=== PATIENT | female | born 1975 | race Caucasian/White ===

== ENCOUNTER 2017-03-31 19:23 | Inpatient (IN) | payer MEDICAID ==
--- NOTE | 2017-03-31 21:08 | EDPHY ---
H & P Stated Complaint: POS PANCREATIC PSEUDO CYST Time Seen by Provider: 03/31/17 20:54 HPI/ROS: CHIEF COMPLAINT: Pancreatic pseudocyst HISTORY OF PRESENT ILLNESS: The patient is a 41-year-old female with a history of chronic alcoholism and pancreatitis who comes to the emergency department directly from [facility] where she had been being treated for pancreatitis and pancreatic pseudocyst. She states that she was initially being treated with meropenem through a PICC line but it caused neutropenia so she was switched to ceftriaxone, Flagyl and vancomycin today. Her pseudocyst had grown in size and a 2nd cyst developed in the last 5 days during her hospitalization at [facility]. The gastrologist there did not want to attempt to drain it because of a history of esophageal varices. The interventional radiologist did not think that it was amenable to IR procedure. Her who works here in this hospital and Dr. Real became involved and felt that he may be able to drain the cyst therefore the patient was discharged from [facility] and has now come to the ER for admission. She states that she is confused about why she was not transferred. She does not have a fever. No nausea vomiting. She states that she is also scheduled to have paracentesis this evening but left before happened. REVIEW OF SYSTEMS: Constitutional: denies: chills, fever, recent illness, recent injury EENTM: denies: blurred vision, double vision, nose congestion Respiratory: denies: cough, shortness of breath Cardiac: denies: chest pain, irregular heart rate, lightheadedness, palpitations Gastrointestinal/Abdominal: See HPI Genitourinary: denies: dysuria, frequency, hematuria, pain Musculoskeletal: denies: joint pain, muscle pain Skin: denies: lesions, rash, jaundice, bruising Neurological: denies: headache, numbness, paresthesia, tingling, dizziness, weakness Hematologic/Lymphatic: denies: blood clots, easy bleeding, easy bruising Immunologic/allergic: denies: HIV/AIDS, transplant EXAM: GENERAL: Well-appearing, well-nourished and in no acute distress. HEAD: Atraumatic, normocephalic. EYES: Pupils equal round and reactive to light, extraocular movements intact, sclera anicteric, conjunctiva are normal. ENT: TMs normal, nares patent, oropharynx clear without exudates. Moist mucous membranes. NECK: Normal range of motion, supple without lymphadenopathy or JVD. LUNGS: Breath sounds clear to auscultation bilaterally and equal. No wheezes rales or rhonchi. HEART: Regular rate and rhythm without murmurs, rubs or gallops. ABDOMEN: Mildly distended, ascites, epigastric tenderness. BACK: No CVA tenderness, no spinal tenderness, step-offs or deformities EXTREMITIES: Normal range of motion, no pitting or edema. No clubbing or cyanosis. NEUROLOGICAL: Cranial nerves II through XII grossly intact. Normal speech, normal gait. 5/5 strength, normal movement in all extremities, normal sensation PSYCH: Normal mood, normal affect. SKIN: Warm, dry, normal turgor, no visible rashes or lesions. Source: Patient, Old records Exam Limitations: No limitations - Personal History LMP (Females 10-55): 8-14 Days Ago Current Tetanus Diphtheria and Acellular Pertussis (TDAP): Yes Tetanus Vaccine Date: 03/2016 - Medical/Surgical History Hx Asthma: No Hx Chronic Respiratory Disease: No Hx Diabetes: No Hx Cardiac Disease: No Hx Renal Disease: No Hx Cirrhosis: Yes Hx Alcoholism: Yes Hx HIV/AIDS: No Hx Splenectomy or Spleen Trauma: No Other PMH: Alcoholism, PARACENTESIS, LIVER DX, VARISCES, PICC LINE R ARM, - Social History Smoking Status: Never smoked Alcohol Use: Heavy Drug Use: None Constitutional: Initial Vital Signs Temperature (C) 36.5 C 03/31/17 19:29 Heart Rate 94 03/31/17 19:29 Respiratory Rate 18 03/31/17 19:29 Blood Pressure 140/93 H 03/31/17 19:29 O2 Sat (%) 98 03/31/17 19:29 O2 Delivery Mode Room Air Allergies/Adverse Reactions: No Known Allergies Allergy (Unverified 03/31/17 19:27) Home Medications: Medication Instructions Recorded Pantoprazole Sodium [Protonix 40mg 40 mg PO BID 03/31/17 (*)] amLODIPine BESYLATE [Norvasc 10 mg 10 mg PO DAILY 03/31/17 (*)] Medical Decision Making ED Course/Re-evaluation: 9:15 p.m. I discussed the case with Dr. Willam Recinos from Gastroenterology. He is not familiar with the plan but will consult. He recommends admission to the hospital service. 9:30 p.m. I discussed the case with Dr. Zachary Reynoso. He was not aware of the patient either. Dr. Recinos call back and states that he spoke with Dr. Real who was not aware that the patient was coming to [place] but had been told previously that the patient had a non drainable pancreatic pseudocyst. The patient is slightly frustrated with the delays. We are obtaining blood work right now and will order antibiotics. Differential Diagnosis: Partial list of the Differential diagnosis considered include but were not limited to; pancreatitis, pancreatic pseudocyst, ascites and although unlikely based on the history and physical exam, I also considered spontaneous bacterial peritonitis, obstruction, ischemia, peptic ulcer disease. - Data Points Laboratory Results: Laboratory Results 03/31/17 22:05 03/31/17 22:05 Medications Given: Diphenhydramine HCl (Benadryl Injection) 12.5 - 25 mg IVP Q4HRS PRN PRN Reason: Itching Stop: 09/27/17 23:30 Last Admin: 04/01/17 01:49 Dose: 25 mg Hydromorphone HCl (Dilaudid) 0.5 - 1 mg IVP Q3HRS PRN PRN Reason: Pain, Severe Unable to Take PO Stop: 04/10/17 23:26 Last Admin: 04/01/17 20:26 Dose: 1 mg Metronidazole/Sodium Chloride (Flagyl 500 Mg (Premix)) 100 mls @ 100 mls/hr IV Q8HRS [facility] PRN Reason: Protocol Stop: 05/01/17 05:59 Last Admin: 04/01/17 20:25 Dose: 100 mls Cefepime HCl 2 gm/ Dextrose 100 mls @ 200 mls/hr IV Q8HRS [facility] Stop: 05/01/17 13:59 Last Admin: 04/01/17 14:30 Dose: 100 mls Lorazepam (Ativan Injection) 0.5 - 1 mg IVP Q8HRS PRN PRN Reason: Anxiety, Unable to Take PO Stop: 09/27/17 23:26 Last Admin: 04/01/17 00:17 Dose: 1 mg Pantoprazole Sodium (Protonix) 40 mg IVP BID [facility] Stop: 09/28/17 08:59 Last Admin: 04/01/17 20:24 Dose: 40 mg Discontinued Medications Hydromorphone HCl (Dilaudid) 0.5 mg IVP EDNOW ONE Stop: 03/31/17 21:14 Last Admin: 03/31/17 21:48 Dose: 0.5 mg Sodium Chloride (Ns) 1,000 mls @ 0 mls/hr IV EDNOW ONE; Wide Open PRN Reason: Protocol Stop: 03/31/17 21:14 Last Admin: 03/31/17 21:47 Dose: 1,000 mls Ceftriaxone Sodium/Dextrose (Rocephin 1 Gm (Premix)) 50 mls @ 100 mls/hr IV EDNOW ONE PRN Reason: Protocol Stop: 03/31/17 22:03 Last Admin: 03/31/17 23:33 Dose: 50 mls Vancomycin/Sodium Chloride (Vancomycin 1 Gm (Premix)) 250 mls @ 250 mls/hr IV EDNOW ONE PRN Reason: Protocol Stop: 03/31/17 22:33 Last Admin: 04/01/17 00:17 Dose: 250 mls Metronidazole/Sodium Chloride (Flagyl 500 Mg (Premix)) 100 mls @ 100 mls/hr IV EDNOW ONE PRN Reason: Protocol Stop: 03/31/17 22:34 Last Admin: 03/31/17 22:00 Dose: 100 mls Cefepime HCl 1 gm/ Dextrose 50 mls @ 100 mls/hr IV Q8HRS [facility] PRN Reason: Protocol Stop: 05/01/17 05:59 Last Admin: 04/01/17 08:23 Dose: 50 mls Vancomycin HCl (Vancocin Oral Liquid) 125 mg PO QID [facility] PRN Reason: Protocol Stop: 05/01/17 01:59 Last Admin: 04/01/17 05:22 Dose: 125 mg Departure - Departure Disposition: [facility] Acute Clinical Impression: Pancreatic pseudocyst Condition: Fair
[2017-03-31] MEDS ORDERED: NS 1,000 ML IV ONE (21:13)
[2017-03-31] MEDS ORDERED: HYDROmorphONE/DILAUDID 1 MG/ML INJ IVP ONE (21:13)
[2017-03-31] MEDS ORDERED: VANCOMYCIN HCL/NORMAL SALINE 250 ML IV ONE (21:34)
[2017-03-31 22:09] LABS: COLOR YELLOW; LEUKOCYTE ESTERASE,URINE NEGATIVE (NEGATIVE); NITRITE,URINE NEGATIVE (NEGATIVE)
[2017-03-31 22:15] LABS: % IMMATURE GRANULYOCYTES 0.4 % (0.0-1.1); ABSOLUTE IMMATURE GRANULOCYTES 0.01 10^3/uL (0.00-0.10); ADD DIFF? NO; ADD MORPH? NO; ADD SCAN? YES; FRAGMENT RBC FLAG 10 (0-99); HEMATOCRIT 26.9 % (38.0-47.0); HEMOGLOBIN 8.4 g/dL (12.6-16.3); LEFT SHIFT FLG 0 (0-99); LIPEMIA HEMOLYSIS FLAG 80 (0-99); MEAN CELL HEMOGLOBIN 24.9 pg (27.9-34.1); MEAN CELL HEMOGLOBIN CONCENTR. 31.2 g/dL (32.4-36.7); MEAN CELL VOLUME 79.6 fL (81.5-99.8); MEAN PLATELET VOLUME 9.3 fL (8.7-11.7); PLATELET CLUMPS FLAG 0 (0-99); PLATELET COUNT 144 10^3/uL (150-400); RED BLOOD CELL COUNT 3.38 10^6/uL (4.18-5.33); RED CELL DISTRIBUTION WIDTH 17.5 % (11.5-15.2)
[2017-03-31 22:20] LABS: MUCUS 2+ /lpf (NONE-1+)
[2017-03-31 22:21] LABS: ATYPICAL LYMPHOCYTE FLAG 210 (0-99)
[2017-03-31 22:28] LABS: ALANINE AMINOTRANSFERASE 23 IU/L (9-52); ALBUMIN 3.4 g/dL (3.5-5.0); ALKALINE PHOSPHATASE 68 IU/L (38-126); ANION GAP 12 mEq/L (8-16); ASPARTATE AMINOTRANSFERASE 19 IU/L (14-46); BILIRUBIN,TOTAL 0.3 mg/dL (0.1-1.4); BILIRUBIN-CONJUGATED 0.2 mg/dL (0.0-0.5); BILIRUBIN-UNCONJUGATED 0.1 mg/dL (0.0-1.1); CALCIUM 9.4 mg/dL (8.5-10.4); CARBON DIOXIDE 25 mEq/l (22-31); CHLORIDE 101 mEq/L (97-110); CREATININE 0.4 mg/dL (0.6-1.0); GLOMERULAR FILTRATION RATE > 60; GLUCOSE 95 mg/dL (70-100); POTASSIUM 3.6 mEq/L (3.5-5.2); SODIUM 138 mEq/L (134-144); TOTAL PROTEIN 6.8 g/dL (6.3-8.2)
[2017-03-31] MEDS ORDERED: ONDANSETRON 4 MG/2 ML VIAL IVP PRN (23:27)
[2017-03-31] MEDS ORDERED: PROMETHAZINE HCL 25 MG/ML INJ IVP PRN (23:27)
[2017-04-01 00:02] LABS: SCAN NEGATIVE
[2017-04-01] MEDS: LORazepam 2 MG/ML INJ IVP PRN ×2 (00:17→22:55)
[2017-04-01] MEDS: VANCOMYCIN 125 MG/2.5 ML UDL PO SCH ×2 (02:54→05:22)
--- NOTE | 2017-04-01 03:28 | GHP ---
[f rep st] HISTORY AND PHYSICAL DATE OF ADMISSION: 03/31/2017 DATE OF SERVICE: 04/01/2017 SOURCE: Patient provides history, appears reliable, a few accompanying paper documents from patient's hospital stay at [facility]. Review of EMR for which patient has no previous visits in our system, and discussion with accepting provider. CHIEF COMPLAINT: Infected pseudocyst. HISTORY OF PRESENT ILLNESS: This is a pleasant 41-year-old female with past medical history significant for alcohol abuse with recent remission since 2016, with known history of pseudocyst with reported enlargement since January when it was diagnosed, recurrent pancreatitis, history of esophageal varices, cirrhosis and ascites, who initially presented to the emergency department at [facility] on March 25, 2017, with complaints of abdominal pain and fevers. Again, patient with known history of pseudocyst that was diagnosed in January 2017 shortly around the time patient was undergoing banding for esophageal varices. She had a subsequent followup imaging study for abdominal pain with concerns of pancreatic mass, which she reports was later felt to be due to thickened pseudocyst wall per the patient. The patient reports she developed epigastric right upper quadrant abdominal pain on March 25, went to the ER, and continued to have intermittent fevers. She underwent further imaging, which noted enlargement of her pseudocyst, as well as concerns for infection, infected pseudocyst. Patient was started on meropenem for antibiotic coverage. She was followed by Infectious Disease service, evaluated by Surgery, GI, and IR, all of whom felt that the pseudocyst was not amenable to safe drainage. The patient opted for discharge with plan to be admitted to [facility]. Per available records, she declined a direct transfer , and presented to [facility] ED this evening. At time of my interview on the medical floor, patient reports that her abdominal pain currently is well controlled. She has no nausea, vomiting. No fevers. She does report 1 episode of diarrhea earlier in the day, but none since arrival. She denies any melena, hematochezia. REVIEW OF SYSTEMS: GENERAL: No fevers, chills. SKIN: No rashes or sores. No jaundice. ENT: The patient denies any symptoms of sore throat, rhinorrhea. EYES: No changes in vision, ocular pain. CV: No chest pain, palpitations. RESPIRATORY: No shortness of breath or cough. GI: As per HPI. : No dysuria or hematuria. MUSCULOSKELETAL: Patient without any complaints of joint or myalgias. NEURO: Patient does report chronic neuropathy in both her feet for the past year. No headache. PSYCH: Patient does report current anxiety related to her acute issue, but in general no history of anxiety or depression. Remainder of review of systems negative, except as noted above. ALLERGIES: No known drug allergies. HOME MEDICATIONS: As per [facility], amlodipine 10 mg p.o. daily, cefepime 2 g IV q.8 hours, Dilaudid 2 mg p.o. half tab p.o. q.2 hours p.r.n. for severe pain, Flagyl 500 mg p.o. t.i.d., OxyIR 5 mg p.o. 1-2 tabs p.o. q.4 hours for pain, Protonix 40 mg p.o. b.i.d., vancomycin 125 mg p.o. q.i.d. PAST MEDICAL HISTORY: Significant for alcoholism with reported remission since 03/08/2017, pseudocyst, pancreatitis, several events, esophageal varices, multiple treatments, cirrhosis, ascites, history of C difficile in 2014. PAST SURGICAL HISTORY: Significant for right arm PICC placement, EGD with banding, exploratory laparotomy for initial history of pancreatitis. FAMILY HISTORY: Patient denies any GI disorders. No cancers. No other medical issues. SOCIAL HISTORY: Patient is . Again, last drink was 03/08/2017. She does smoke occasional marijuana. No illicit drug use. No tobacco. CODE STATUS: Full. Patient desires her to act as proxy, as needed. No advanced directives officially in place. PHYSICAL EXAMINATION: VITAL SIGNS: Upon arrival to the ER, blood pressure 140/ 93, heart rate 94, respiratory rate 18, O2 saturation 98% on room air with temperature 36.5. Currently available vitals, blood pressure 137/88, heart rate 75, respiratory rate 16, O2 saturation 99% on room air with a temperature of 36.5. GENERAL: No acute distress, pleasant, adult female is lying quietly in bed. She does appear fatigued. HEAD: Normocephalic, atraumatic. EYES: Extraocular muscles grossly intact. Pupils equal, round, react to light bilaterally and symmetric. No scleral icterus or conjunctival injection. ENT: Mucous membranes appear slightly dry. No oropharyngeal erythema or exudates. NECK: Supple. Trachea midline. CV: Regular rate and rhythm. There is a 2/6 systolic murmur appreciated. No rubs or gallops. RESPIRATORY: Unlabored breathing. LUNGS: Clear to auscultation bilaterally. No wheezes, rales, or rhonchi. ABDOMEN: Soft, slightly distended. Positive bowel sounds. Patient with tenderness to palpation in the epigastric and right upper quadrant. Negative Whitehead's. No rebound or guarding. : No suprapubic tenderness to palpation. No Gutiérrez in place. EXTREMITIES: Patient without any cyanosis, clubbing, or edema appreciated. 2+ pedal pulses. PSYCH: Affect is slightly flat, but patient is cooperative and appropriate. LABORATORY DATA: 03/31/2017 labs from [facility], WBC is 1.6, H and H is 9.2 and 29.2, MCV of 76, platelet count 121. Sodium 139, potassium 3.4 , CO2 is 28, chloride 102, BUN 2, creatinine 0.36, glucose 95, ALT is 11, AST is 13, alk phos 53, total bilirubin 0.5. Laboratory studies repeated here at [facility], WBC is 2.70, H and H 8.4 and 26.9, MCV 79.6, platelet count is 144. No bands. Sodium is 138, potassium 3.6, chloride 101, CO2 25, anion gap 12, BUN 4, creatinine 0.4, GFR greater than 60, glucose 95, calcium 9.4, total bilirubin 0.3, ALT is 23, AST is 19, alk phos is 62, total protein 6.8, albumin 3.4, lipase is 253. UA: Hazy with pH of 7.0, specific gravity 1.023, protein 1+, 3-5 RBCs, 5-10 WBCs, 2+ mucus, no bacteria seen, negative glucose. No imaging reports or disks accompany the patient. She does report she has these on file. There is an infectious disease report available in patient's chart dated from yesterday on 03/31/2017, with plans to discontinue meropenem due to patient's new development of neutropenia, and switched to cefepime and Flagyl. The patient's last dose of cefepime is received at 1500, and last dose of Flagyl also listed 1500. The patient with history of C difficile and was recommended to have p.o. vancomycin at 125 daily. ASSESSMENT AND PLAN: Pleasant 41-year-old female with history of alcohol dependence and known pseudocyst, presents following hospitalization at [facility] for infected pseudocyst. Presented independently for change of care. 1. Infected pseudocyst. Patient without qualifications for systemic inflammatory response syndrome or sepsis criteria at this time. She has been on several days of antibiotics and just today was switched from meropenem to cefepime. She did receive single dose of Cefepime and Flagyl at approximately 1500 yesterday. In the emergency department, she received Rocephin and Flagyl. Will plan to continue as per ID recommendations cefepime 2 g q.8 hours and Flagyl IV 500 t.i.d. We will consult Infectious Disease this morning for further assistance with antibiotic management. General Surgery and GI have been consulted from the emergency department and will evaluate the patient in the morning. We will hold off on further imaging. The patient reports she is able to produce the disks. 2. Pancreatitis. Lipase at this time is within normal limits. The patient continues to have abdominal pain. We will make her n.p.o. until such time as plan and evaluation by specialty services. Patient is amenable to this at this time. 3. Abdominal pain. Dilaudid available IV p.r.n. At this time, patient reports she is comfortable. 4. History of alcoholism in remission since 03/08/2017. No need to monitor for withdrawal at this time. 5. Pancytopenia related to meropenem suspected, also likely some component of coagulopathy in setting of patient's history of cirrhosis. We will continue to monitor. 6. Esophageal varices with history of banding. Patient without any evidence of active bleeding at this time. Will monitor closely. 7. Coagulopathy. Monitor coag studies and daily CBC. 8. Hypoalbuminemia related to patient's cirrhosis. 9. Fluid, electrolyte, and nutrition. Continue with some lactated Ringer overnight while patient is n.p.o. Monitor fluid status closely. Electrolyte replacement p.r.n. Patient at her previous hospital did have some hypokalemia, so will monitor electrolytes closely. She will be n.p.o. pending further recommendations of GI and Surgical Services. 10. Cor status is full. Patient without advance directives, desires to act as proxy if needed. DISPOSITION: Patient admitted to inpatient status for infected pancreatitis requiring IV antibiotics and further evaluation by specialty services. Prophylaxis. SCDs only, holding anticoagulation secondary to the patient's coagulopathy and pancytopenia. We will monitor daily labs at this point. /[id number]/MODL MTDD
[2017-04-01 05:24] LABS: % IMMATURE GRANULYOCYTES 0.5 % (0.0-1.1); ABSOLUTE IMMATURE GRANULOCYTES 0.01 10^3/uL (0.00-0.10); ADD DIFF? NO; ADD MORPH? NO; ADD SCAN? YES; FRAGMENT RBC FLAG 0 (0-99); HEMATOCRIT 26.9 % (38.0-47.0); HEMOGLOBIN 8.3 g/dL (12.6-16.3); LEFT SHIFT FLG 0 (0-99); LIPEMIA HEMOLYSIS FLAG 80 (0-99); MEAN CELL HEMOGLOBIN 24.6 pg (27.9-34.1); MEAN CELL HEMOGLOBIN CONCENTR. 30.9 g/dL (32.4-36.7); MEAN CELL VOLUME 79.6 fL (81.5-99.8); MEAN PLATELET VOLUME 9.3 fL (8.7-11.7); PLATELET CLUMPS FLAG 0 (0-99); PLATELET COUNT 103 10^3/uL (150-400); RED BLOOD CELL COUNT 3.38 10^6/uL (4.18-5.33); RED CELL DISTRIBUTION WIDTH 17.6 % (11.5-15.2)
[2017-04-01 05:25] LABS: ATYPICAL LYMPHOCYTE FLAG 140 (0-99)
[2017-04-01 05:29] LABS: INR 1.25 (0.83-1.16); PROTIME(PATIENT) 15.9 SEC (12.0-15.0)
[2017-04-01 05:30] LABS: APTT 35.7 SEC (23.0-38.0)
[2017-04-01] MEDS ORDERED: CEFEPIME HCL 1 GM in D5W 50 ML IV SCH (06:00)
[2017-04-01 06:15] LABS: ALANINE AMINOTRANSFERASE 22 IU/L (9-52); ALBUMIN 3.1 g/dL (3.5-5.0); ALKALINE PHOSPHATASE 61 IU/L (38-126); ANION GAP 12 mEq/L (8-16); ASPARTATE AMINOTRANSFERASE 19 IU/L (14-46); BILIRUBIN,TOTAL 0.2 mg/dL (0.1-1.4); CALCIUM 9.1 mg/dL (8.5-10.4); CARBON DIOXIDE 24 mEq/l (22-31); CHLORIDE 104 mEq/L (97-110); CREATININE 0.4 mg/dL (0.6-1.0); GLOMERULAR FILTRATION RATE > 60; GLUCOSE 98 mg/dL (70-100); MAGNESIUM 1.6 mg/dL (1.6-2.3); POTASSIUM 3.5 mEq/L (3.5-5.2); SODIUM 140 mEq/L (134-144); TOTAL PROTEIN 6.4 g/dL (6.3-8.2)
[2017-04-01 06:22] LABS: SCAN NEGATIVE
[2017-04-01] MEDS: PANTOPRAZOLE SODIUM 40 MG VIAL IVP SCH ×2 (08:22→20:24)
[2017-04-01] MEDS: HYDROmorphONE/DILAUDID 1 MG/ML INJ IVP PRN ×2 (09:40→20:26)
--- NOTE | 2017-04-01 11:18 | PDMN ---
Medical Necessity Medical necessity: est los>2mn for infected pseudocyst, pancreatitis, abd pain, and coagulopathy; admit for IVF, IV abx, ID, GI and surgical consults; hx alcoholism in remission x 1 mo, , esophageal varices/banding, hypoalbuminemia r/ t cirrhosis, and pancytopenia; per order and H&P 03/31/17
--- NOTE | 2017-04-01 12:55 | HOSPPROG ---
Hospitalist Progress Note Assessment/Plan: DIAGNOSES: -suspected infected pancreatic pseudocyst -ascites with history of liver disease and portal hypertension, question of spontaneous bacterial pericarditis -pancytopenia with neutropenia, most likely related to her liver disease, neutrophil count 730 today -chronic cirrhosis with presence of esophageal varices, portal hypertension, ascites all at this time I reviewed her case in detail with doctors Willam Recinos, Gregg Gomez, and Donell Bray today At this point she clearly needs to have ongoing antibiotic therapy. Will need to get in touch with the other hospitals to see if anything is growing in blood cultures. At this point I would find it not likely advantages to try and drain her pseudocyst with potential for leakage into her ascitic fluid and peritonitis related to that. Sampling her ascites fluid to see if it appears like it might be infected would also be useful, however since she has been on antibiotics for some time we may not get ideal information there. Fortunately at this time she does not appear septic or really very toxic, and we certainly have time to assess her symptom and make the best recommendations. I will have to review few her outside records in more detail particularly in relation to the imaging PLANS: -continue current antibiotics -try and check on cultures from other hospitals -review her imaging at the other hospitals as able -will review again with our subspecialists here if they have all had a chance to visit with her -at this time there does not appear to be an indication for diuretic medication , however if her ascites increases or she begins to develop more edema would add oral diuretics -no indication for transfusion at this time, will discuss management of neutropenia with Dr. parish after she visits the patient SUBJECTIVE: Feeling reasonably well, no out abdominal tension, minimal epigastric pain, no nausea, no chills or sweats, no respiratory symptoms OBJECTIVE Vitals reviewed: Stable without fever [employer], my review: Exam: alert oriented skin warm dry color ok resps not labored lungs clear BSs heart regular abd soft distended moderately with ascites that is not tense at this time, some mild epigastric tenderness but otherwise nontender, bowel sounds present limbs warm, no edema iv site ok Laboratory data: White blood cell count a bit lower at 2000 with 730 neutrophils today Stable hemoglobin at 8 and platelets approximately 100 Normal bilirubin and liver enzymes, normal renal function and electrolytes Objective: Vital Signs Temp Pulse Resp BP Pulse Ox 36.8 C 83 17 119/78 96 04/01/17 12:19 04/01/17 12:19 04/01/17 12:19 04/01/17 12:19 04/01/17 12:19 Laboratory Results 04/01/17 04:46 04/01/17 04:46 03/31/17 04/01/17 04/02/17 06:59 06:59 06:59 Intake Total 1700 Output Total 1200 Balance 500 PT 15.9 SEC (12.0-15.0) H 04/01/17 04:46 INR 1.25 (0.83-1.16) H 04/01/17 04:46 - Time Spent With Patient Time Spent with Patient: greater than 35 minutes Time Spent with Patient: Greater than 35 minutes spent on this patients care, greater than 50% of time spent counseling, educating, and coordinating care regarding the above mentioned plan. ICD10 Worksheet Patient Problems: Problems Problem Status Onset Pancreatic pseudocyst Acute
[2017-04-01] MEDS: CEFEPIME HCL 2 GM in D5W 100 ML IV SCH ×2 (14:30→22:07)
--- NOTE | 2017-04-01 16:26 | ASMTCMCOM ---
CM Note CM Note Notes: Pt was admitted with a suspected infected pancreatic pseudocyst. Recently at [facility] Hx etoh abuse. Currently on IV ABX. CM will follow for any d/c needs. Date Signed: 04/01/2017 04:26 PM Electronically Signed By:TAISHA Barrios
--- NOTE | 2017-04-01 18:51 | GCON ---
[f rep st] CONSULTATION INFECTIOUS DISEASE CONSULTATION. DATE OF CONSULTATION: 04/01/2017 REFERRING PHYSICIAN: Selam Carrion MD REASON FOR CONSULTATION: Infected pseudocyst. CHIEF COMPLAINT: Abdominal pain. HISTORY OF PRESENTING ILLNESS: This is a 41-year-old female with a past medical history significant for alcoholism, recurrent pancreatitis, esophageal varices, cirrhosis, ascites, history of C difficile, who apparently was in [place] around [facility]. She woke up with severe abdominal pain and was admitted there and hospitalized. She had a CAT scan done which apparently showed a pseudocyst. She also tells me she had a portal vein thrombosis and was put on heparin briefly. She flew home from there and was supposed to follow up with her provider here, but not because she was feeling better. She states that she has not been drinking alcohol since March 08. However, on March 25 she started to have increasing abdominal pain, fevers and shaking chills, and went to [facility] for further evaluation. They did not draw blood cultures at the time of admission, but mando then 3 days later which were no growth to date. A CAT scan was done, which showed enlarging pseudocyst collection with thick do and gas within. It was about 4 x 4 cm. She was started on meropenem and her fevers did start to improve to low-grade intermittent fevers. She also started to have decrease in her abdominal pain. However, throughout her hospital course there her white blood cell count did drop down to 1.6 and her antibiotics were changed to cefepime and Flagyl. She wanted to come here to [facility] for a second opinion, GI, surgery, etc. She did have a followup CT done on March 30 which showed a small second collection present now without gas within. The size of the previously noted abscess actually looks a bit smaller at 3.2 x 3.2, although it is stated as being larger. Infectious Disease is now consulted for further evaluation and opinion. REVIEW OF SYSTEMS: GENERAL: Currently no fevers or shaking chills. HEAD: No headaches. EYES: No change in vision. ENT: No sore throat, difficulty swallowing, ear pain or drainage. CARDIOVASCULAR: No chest pain or rapid heart beat. RESPIRATORY: No shortness of breath, cough or sputum production. GI: As above. She denies nausea, vomiting. She states she had 3 loose watery stools yesterday and 1 loose stool today. : No dysuria or hematuria. MUSCULOSKELETAL: No joint pains or muscle aches. SKIN: No rashes. Rest of 10-point review of systems essentially negative. PAST MEDICAL HISTORY: Significant for alcoholism, recurrent pancreatitis, esophageal varices, cirrhosis, ascites, history of pseudocyst, history C difficile in 2014. PAST SURGICAL HISTORY: Significant for EGD with banding, exploratory laparotomy in 2009 at [facility]. She currently has a PICC line in place. SOCIAL HISTORY: She is . She does not smoke. Her last alcoholic drink was March 08, 2017. She lives with her . She has 2 pre-teenage children. No pets. Last levels were to [place] both in January and in February. FAMILY HISTORY: Significant for hypertension, coronary artery disease, diabetes. PHYSICAL EXAMINATION: VITAL SIGNS: Temperature current 36.8, pulse is 83, blood pressure 119/78, respiratory rate 17, saturation 96% on room air. GENERAL : Patient is resting in bed, in no acute respiratory distress. Awake, alert, oriented x3. HEENT: Head is normocephalic, atraumatic. Eyes without conjunctival injection or petechiae noted. Oropharynx is clear. There is no posterior erythema or thrush. CARDIOVASCULAR: S1, S2. Regular rate and rhythm. No murmurs appreciated. RESPIRATORY: Course breath sounds at bases.. No rhonchi or rales appreciated. ABDOMEN: Positive bowel sounds in all quadrants. Soft, tender in the upper right and left upper quadrants and epigastric region. No guarding at present. EXTREMITIES: Lower extremities without edema. MUSCULOSKELETAL: No obvious joint effusions. SKIN: No obvious rashes. LABS: White blood cell count is 2.0, hemoglobin 8.3, platelets 103. 36. INR 1.2. Sodium 140, potassium 3.5, chloride 74, bicarb is 24, BUN is 2, creatinine 0.4. AST 19, ALT 22, alk phos 61. Total bilirubin 0.2. Urinalysis with 5-10 WBCs, negative nitrites, negative leukocyte esterase. IMAGING: Results from [facility] reviewed with Radiology here, Dr. Diaz. Her medical records from [facility] also were reviewed. ASSESSMENT: 1. Infected pseudocyst. 2. Recurrent pancreatitis. 3. Pancytopenia. PLAN: Patient is currently on cefepime, Flagyl and vancomycin orally. We will discontinue vancomycin as Flagyl will provide some ongoing suppression for her previous history for C difficile. Would continue with broad-spectrum antimicrobials covering enteric pathogens for the above. Cefepime and Flagyl are reasonable at this point in time. Will need to continue to watch her blood counts closely and if they continue to drop on this regimen, she may need to be switched to an alternative agent such as possibly Levaquin and Flagyl. Will add CRP to today's blood work to see if this will help follow progress going forward. Plan for at least 4 weeks of therapy with a follow up CT scan at that time. Care discussed with the hospitalist team as well as the storage receipt poster and surgical team. I thank you very much for providing this opportunity to care for your patient in consultation. /[id number]/MODL MTDD
--- NOTE | 2017-04-01 19:06 | GCON ---
[f rep st] CONSULTATION INPATIENT CONSULTATION NOTE. REFERRING PHYSICIAN: Ashu Patricia MD REASON FOR CONSULTATION: Management of pancreatic pseudocyst. CHIEF COMPLAINT: Abdominal pain. Briefly, the patient is a 41-year-old, pleasant, alcoholic female, who was admitted to the hospital o n 03/31/2017, for evaluation of abdominal symptoms. She has a recent complex history of complications of alcohol use. This has included cirrhotic liver disease, complicated by portal hypertension and varices. She has had prior variceal bleeding. In ad dition, she has had recurrent episodes of pancreatitis that have been complicated by pseudocyst devel opment. She has also had episodes of ascites related to both pancreatitis, as well as portal hyperte nsion. She was recently in the hospital in [place] with an episode of pancreatitis in the setting of alcoh ol use. This was approximately 1 month ago. She was discharged from there and followed up at a [facility] in [place]. She had a hospital stay there, including multiple images and laboratory test s. She wanted to move her care closer to home, and so, she left that hospital and came to [facility]. A summary of her recent month-long evaluation is that she has probable infected pseudocysts in the se tting of [id number] pancreatitis related to alcohol. Surgical, Interventional Radiology, and G I evaluations of her prior hospital stay were undertaken. It was the feeling of those teams that her pseudocysts were not amenable to surgical, IR, or endoscopic drainage. This was due to the location , size, and surrounding degree of portal hypertensive vascularity. She reports over the last several days, she started to feel somewhat better with regard to abdominal symptoms. She had normal food on Friday and yesterday. She is having less pain in the back and abdo men. She was started on antibiotics for her presumed infectious pseudocyst collections approximately 1 wee k ago. Her antibiotic therapies have been complicated by neutropenia. ALLERGIES: None. HOME MEDICATIONS: Amlodipine, cefepime, Dilaudid, Flagyl, pain therapy, acid reduction, and vancomyc in. PAST MEDICAL HISTORY: Includes alcoholism with pseudocyst and pancreatitis, as described above; esop hageal varices, complicated by bleeding, most recently in fall. She also describes a history of ascites, C difficile infection, and cirrhosis. PAST SURGICAL HISTORY: Includes PICC placement, upper endoscopy. FAMILY HISTORY: Negative for pancreatitis and alcoholism. SOCIAL HISTORY: She is . She drinks alcohol. Her last drink was 03/08/2017. She does not u se any drugs. She denies tobacco use. She uses marijuana occasionally. REVIEW OF SYSTEMS: A complete 10-system review was undertaken with the patient. The pertinent posit frances and negatives are detailed in the History of Present Illness. PHYSICAL EXAM: This is a pleasant well-developed female, in no apparent distress. Her pupils are eq ual, round, reactive to light and accommodation. Her sclerae are nonicteric. Her oropharynx is velia r. NECK: Supple without lymphadenopathy. HEART: Regular without murmur. ABDOMEN: Soft but diffu sely tender. She has normoactive bowel sounds. EXTREMITIES: Free of cyanosis, clubbing, and edema. SKIN: Exam reveals no rash or jaundice. JOINTS: Without arthritis. NEURO: Exam is grossly nonf ocal. PSYCH: Exam reveals normal mood and affect. LABORATORY TESTING: White count of 2.01, hemoglobin of 8.3, hematocrit of 26.9, MCV of 79.6, platele t count of 103. INR of 1.25. Sodium of 140, potassium of 3.5, chloride of 104, bicarb of 24, BUN of 2, creatinine of 0.4. AST, ALT, alkaline phosphatase, and total bilirubin were normal. Lipase on a dmission was 253, albumin of 3.1. Review of outside imaging and labs was undertaken. A summary of t hat imaging is that she has 2 focal pseudocyst collections in the area of the bed of the pancreas. O ne of these has the presence of gas within suggesting infection. IMPRESSION/RECOMMENDATIONS: The patient has a complicated pancreaticobiliary history related to unde rlying cirrhosis and chronic pancreatitis, complicated by pseudocyst formation. Her clinical history and recent imaging are concerning for infected pseudocysts, although no positive blood cultures or c yst cultures have been obtained. Unfortunately, her cysts are not amenable to drainage due to size, location, and risks. Luckily, she is gradually improving clinically on antibiotic therapies. At this time, I recommend she embark on a course of chronic antibiotic therapy with serial imaging. She should remain sober from alcohol. Pending her response to that conservative care, we will need t o consider additional options. Surgical interventions, Interventional Radiology interventions, and e ndoscopic interventions of pseudocysts would carry significant risk. Meanwhile, she should eat a normal diet. I recommend a 2 g sodium limitation given her portal hypert ensive disease. She needs to avoid fat. At this time, I do not think there is much benefit to tapping her ascites. She is on broad-spectrum antibiotics. The presence or absence of infected ascitic fluid will be unhelpful with regard to her care. She is not having significant enough symptoms related to ascites to warrant a therapeutic tap at this time. I am hopeful that her plan of care can be established over the next 24-48 hours, and she can be disch arged home soon. /[id number]/MODL
--- NOTE | 2017-04-01 20:18 | GCON ---
[f rep st] CONSULTATION DATE OF CONSULTATION: 04/01/2017 CHIEF COMPLAINT: Infected pancreatic pseudocyst with abdominal pain. HISTORY OF PRESENT ILLNESS: This is a 41-year-old female, known to me as I work with her ex- and he briefly presented this case to me a few weeks ago. Briefly, the patient was recently in [facility], has known chronic pancreatitis and alcohol abuse. During that trip, she did drink some alcohol and was subsequently hospitalized with severe epigastric pain consistent with pancreatitis in [facility]. At any rate, she had imaging at that point in time, which showed a sizable pseudocyst as well a s some free fluid within her abdomen consistent with ascites. In any event, the patient was subseque ntly stabilized and able to be transported back here to [place]. In the interim, her images were revi ewed by myself and Gastroenterology to figure out a plan for this pseudocyst. The patient states harish t last week she was in her usual state of health and began to have a severe, unrelenting abdominal pa in and presented to an outside hospital at that point in time for workup. She has subsequently been hospitalized for the better part of the week on IV antibiotics and subsequently had repeat imaging as well as consultation from Gastroenterology and Surgery. [employer] at the outside hospital, felt that these pseudocysts were not drainable from a gastroenterology route. Surgery felt that giv en her overall stability and response to the antibiotics, she was not a surgical candidate given her varices. She was subsequently discharged yesterday from the outside hospital and presented here to [facility] seen and stabilized, as she wanted to transition her care here but did not want to take an ambulanc e to do so. On presentation, she did describe some epigastric abdominal pain, better than previous. She was tolerating a regular diet, having appropriate bowel function and was subsequently sent home on antibiotics afebrile. On my consultation today, she states that she has felt well and that when t he pain is better, she continues to tolerate a regular diet, consisting of pretty much everything she used the eat. At this point in time, she is hungry. She is tolerating a regular diet. She is havi ng appropriate bowel function, and she has been afebrile. She describes her pain as epigastric in na ture, with radiation to her back. Currently 4/10 in intensity. At its worst 10/10. She denies havi ng nausea or vomiting and otherwise feels well. PAST MEDICAL HISTORY: Alcoholism, known pancreatic pseudocyst, esophageal varices, multiple intraabd ominal varices, cirrhosis, ascites and history C diff. PAST SURGICAL HISTORY: EGD with banding of varices, large midline exploratory laparotomy for pancrea titis in the past. FAMILY HISTORY: Noncontributory. SOCIAL HISTORY: She is . Claims that her last drink was March 08 and that she has been sober since. Does endorse occasional marijuana use. Denies tobacco use and works at a [employer]. REVIEW OF SYSTEMS: A full 10-point review was performed and, unless explicitly stated above, is othe rwise negative. PHYSICAL EXAMINATION: VITAL SIGNS: Temperature 36.8, blood pressure 119/78, heart rate 83. She is 96% on room air. CONSTITUTIONAL: She is in no apparent distress. She appears comfortable. HEENT: Eyes, her pupils are equal, round, and reactive to light and accommodation. She has anicteric scler ae. Her extraocular movements are intact. Ears, nose, mouth, throat, she has moist mucous membranes . Her hearing is normal. Her ears appear normal, and she has no oral mucosal ulcers. CARDIOVASCULA R: She has a regular rate and rhythm with no murmurs, no rubs or gallops. RESPIRATORY: She has no respiratory distress. No rales or rhonchi. GASTROINTESTINAL: She has normoactive bowel sounds. He r abdomen is soft. She is tender in the epigastrium but has no rebound tenderness or guarding. She has a well-healed midline scar consistent with previous surgical history. SKIN: Warm, normal color without rashes or abrasions. She does not have a positive abdominal fluid wave. MUSCULOSKELETAL: S he has full muscle strength without tenderness, with normal joint range of motion. NEUROLOGIC: She is alert and oriented x3. Her cranial nerves 2-12 are intact. She has no weakness, no numbness, no asterixis. PSYCHIATRIC: She is interacting appropriately. She is not anxious. She is not encephal opathic and her thought process is linear. LYMPHATIC/HEMATOLOGIC/ IMMUNOLOGIC: She has no cervical groin or supraclavicular lymphadenopathy noted. MEDICAL DECISION MAKING: Labs: White count this morning 2, H and H stable at 8 and 27, platelets 10 3, down from 144. Chemistries are relatively unremarkable. Her liver function enzymes are normal. Her lipase yesterday was 253. She has multiple recent CT scans and MR imaging performed both in [place] and [facility]. All of these images which were personally reviewed by me with radiologist . All of them show at least a 4 cm pseudocyst adjacent to the duodenum and pancreas consistent with previous imaging, as well as some intraabdominal ascites. There are some air-fluid levels within the pseudocyst consistent with infection. She also has fairly robust varicocele disease surrounding the se as well. Does not appear to have gastric outlet obstruction or small bowel obstruction secondary to this at this time. ASSESSMENT AND PLAN: A 41-year-old female with significant history of alcohol abuse, chronic pancrea titis and what likely is a pancreatic pseudocyst. The patient at this point in time, is stable. She is tolerating a regular diet, and again, has no signs of obstruction. It sounds as though previousl y when the cyst was bigger, she had issues tolerating p.o. secondary to the size of the cyst, but it appears smaller at this point in time. She tolerated a regular diet with appropriate return of bowel function at this time. She is currently stable on IV antibiotics. She has had consultation from In fectious Disease, and the plan will likely be to transition to oral antibiotics with same bioequivale nce for outpatient treatment. Again, her abdomen at this point in time is soft. She is tender in th e epigastrium, which I would expect, but has no signs of sepsis or any concerning abdominal signs whi ch would be concerning that she would need more urgent operative intervention. After discussing the case with Doctors Jorje Patricia and , I feel the plan at this point in time, is stable wit h medical management. Dr. Recinos and Dr. Real, who the patient originally had seen, feel that the ps eudocyst is likely not endoscopically drainable at this time, and given her clinical improvement, lind s not warrant it at this time. In addition, her abdomen is soft. She is tolerating regular diet. I see no signs for surgical intervention as well. We will continue to monitor. /[id number]/MODL
[2017-04-02] MEDS: CEFEPIME HCL 2 GM in D5W 100 ML IV SCH (05:17)
[2017-04-02 05:50] LABS: ABSOLUTE IMMATURE GRANULOCYTES 0.02 10^3/uL (0.00-0.10); ADD DIFF? NO; ADD MORPH? NO; ADD SCAN? NO; ATYPICAL LYMPHOCYTE FLAG 60 (0-99); FRAGMENT RBC FLAG 0 (0-99); HEMATOCRIT 26.8 % (38.0-47.0); HEMOGLOBIN 8.3 g/dL (12.6-16.3); LEFT SHIFT FLG 0 (0-99); LIPEMIA HEMOLYSIS FLAG 80 (0-99); MEAN CELL HEMOGLOBIN 24.6 pg (27.9-34.1); MEAN CELL VOLUME 79.5 fL (81.5-99.8); MEAN PLATELET VOLUME 9.9 fL (8.7-11.7); PLATELET CLUMPS FLAG 0 (0-99); PLATELET COUNT 111 10^3/uL (150-400); RED BLOOD CELL COUNT 3.37 10^6/uL (4.18-5.33); RED CELL DISTRIBUTION WIDTH 17.5 % (11.5-15.2)
[2017-04-02 05:51] LABS: ALANINE AMINOTRANSFERASE 22 IU/L (9-52); ALKALINE PHOSPHATASE 55 IU/L (38-126); ANION GAP 12 mEq/L (8-16); ASPARTATE AMINOTRANSFERASE 21 IU/L (14-46); BILIRUBIN,TOTAL 0.4 mg/dL (0.1-1.4); BILIRUBIN-CONJUGATED 0.2 mg/dL (0.0-0.5); BILIRUBIN-UNCONJUGATED 0.2 mg/dL (0.0-1.1); CALCIUM 8.9 mg/dL (8.5-10.4); CARBON DIOXIDE 26 mEq/l (22-31); CHLORIDE 102 mEq/L (97-110); CREATININE 0.5 mg/dL (0.6-1.0); GLOMERULAR FILTRATION RATE > 60; GLUCOSE 104 mg/dL (70-100); POTASSIUM 3.4 mEq/L (3.5-5.2); SODIUM 140 mEq/L (134-144); TOTAL PROTEIN 6.6 g/dL (6.3-8.2)
--- NOTE | 2017-04-02 08:38 | SOAPPROG ---
SOAP Progress Note Assessment/Plan: Assessment: 1. Pancreatitis 2. Portal HTN 3. Probable infected pseudocyts Plan: 1. OK to continue regular 2gm Na diet 2. Consider DC home today? with IV abx and serial imaging 3. I will arrange f/u in clinic with Dr. Real - will sign off, call with questions 04/02/17 08:36 Subjective: CC: f/u pseudocysts S: feeling ok no need for IV pain meds due to abd pain tolerated regular diet with only mild fullness symptoms no fever no vomiting no diarrhea Objective: Vital Signs Temp Pulse Resp BP Pulse Ox 36.9 C 70 16 131/86 H 94 04/02/17 04:00 04/02/17 04:00 04/02/17 04:00 04/02/17 04:00 04/02/17 04:00 Laboratory Results 04/02/17 05:15 04/02/17 05:15 04/01/17 04/02/17 04/03/17 05:59 05:59 05:59 Intake Total 1700 900 Output Total 1200 902 Balance 500 -2 PT 15.9 SEC (12.0-15.0) H 04/01/17 04:46 INR 1.25 (0.83-1.16) H 04/01/17 04:46 Physical Exam - Physical Exam General Appearance: alert, no apparent distress EENT: PERRL/EOMI, normal ENT inspection, No scleral icterus (R), No scleral icterus (L) Neck: non-tender, full range of motion Respiratory: chest non-tender, lungs clear, normal breath sounds Cardiac/Chest: normal peripheral pulses, regular rate, rhythm, No edema Abdomen: normal bowel sounds, non-tender, soft, No organomegaly Skin: normal color, warm/dry, No cyanosis Extremities: normal range of motion Neuro/Psych: no motor/sensory deficits, alert ICD10 Worksheet Patient Problems: Problems Problem Status [place] Pancreatic pseudocyst Acute
[2017-04-02 09:37] VITALS: O2SAT 99
[2017-04-02] MEDS: PANTOPRAZOLE SODIUM 40 MG VIAL IVP SCH (12:02)
[2017-04-02 13:10] VITALS: BP 142/98; PULSE 84; RESP 15; TEMP 98.1
--- NOTE | 2017-04-02 15:57 | ASMTCMCOM ---
CM Note CM Note Notes: Pt switched to oral ABX and will DC today with no needs. Date Signed: 04/02/2017 03:57 PM Electronically Signed By:Lalita Greco LCSW
--- NOTE | 2017-04-02 18:54 | PDDCSUM ---
Discharge Summary Discharge Summary: DISCHARGE DIAGNOSES: -suspected infected pancreatic pseudocyst -ascites with history of liver disease and portal hypertension, question of spontaneous bacterial pericarditis -pancytopenia with neutropenia, most likely related to her liver disease -chronic cirrhosis with presence of esophageal varices, portal hypertension, ascites all at this time CONSULTANTS: Donell Villasenor, Gregg Gomez PROCEDURES: None HOSPITAL COURSE SUMMARY: This patient with long history of alcoholic liver disease had been diagnosed elsewhere with a infected pancreatic pseudocyst along with ascites. She had been receiving antibiotics at a hospital in [place] here and recovering nicely transferred to this hospital to have consultation with specialists were that she and her were familiar with. Upon arrival here the patient really stable with good vital signs, no fever, no abdominal pain, no nausea vomiting was eating regular diet. She was receiving appropriate antibiotics to cover GI niocle and was tolerating them well. There was no evidence of pulmonary, thromboembolic, or any other complication. She was seen by doctors from surgery Gastroenterology and Infectious Disease. After careful review of her prior images and her current clinical status and improvement, all were in agreement that the patient could be treated clinically with ongoing antibiotic therapy and expected recovery with conservative management. However she would need close follow-up care. Plan is for her to go home with oral antibiotics and follow up with the [facility] and with the doctor make you from Gastroenterology. PENDING TEST RESULTS: None MEDICATION CHANGES: Addition of Levaquin 750 mg daily and Flagyl 500 mg three times daily for expected 4 weeks and prescription is given for that duration Greater than 35 minutes bedside and care coordination time today
--- NOTE | 2017-04-03 14:30 | ASDISCHSUM ---
Discharge Information Plan Status: Medically Cleared to Leave: Discharge Date:04/02/2017 04:49 PM CM D/C Disposition: ADT D/C Disposition:Home, Routine, Self-Care Projected Discharge Date:04/02/2017 04:49 PM Transportation at D/C: Discharge Delay Reason: Follow-Up Date:04/02/2017 04:49 PM Discharge Slot: Final Diagnosis: Placement Information Patient Contact Information Contact Name:PIERO Relationship: Address: Work Phone: City: [facility] Phone: State/Zip Code: Email: Financial Information Financial Class: Primary Plan Desc:[employer] [place] Primary Plan Number:[id number] Secondary Plan Desc: Secondary Plan Number: Assessment Information [facility] CM Progress Note CM Note CM Note Notes: Pt was admitted with a suspected infected pancreatic pseudocyst. Recently at [facility] Hx etoh abuse. Currently on IV ABX. CM will follow for any d/c needs. Date Signed: 04/01/2017 04:26 PM Electronically Signed By:TAISHA Barrios [facility] CM Progress Note CM Note CM Note Notes: Pt switched to oral ABX and will DC today with no needs. Date Signed: 04/02/2017 03:57 PM Electronically Signed By:Lalita Greco LCSW Intervention Information Intervention Type:*Incorrect Registration Date of Service:04/01/2017 11:28 AM Patient Type:Inpatient Staff Member:RAVI Leblanc, Margie Hours: Discipline: Severity: Comment:
== END 2017-04-02 16:49 | disposition home or self-care (01) | DRG 439 ==
LOC: F1N 22:36 → OBSVTOIN 23:27
PROVIDERS: ADMIT Student in an Organized Health Care Education/Training Program; ATTEND Student in an Organized Health Care Education/Training Program
DX: K86.3 Pseudocyst of pancreas (principal); D61.818 Other pancytopenia; K76.6 Portal hypertension; I85.10 Secondary esophageal varices without bleeding; K70.31 Alcoholic cirrhosis of liver with ascites; D70.9 Neutropenia, unspecified; F10.21 Alcohol dependence, in remission; T36.8X5A Adverse effect of other systemic antibiotics, initial encounter; K86.0 Alcohol-induced chronic pancreatitis
CPT/HCPCS: 96365; J0692; J1170; J1200; J2060; J3370